=== PATIENT | male | born 1975 | race African-American/Black ===

== ENCOUNTER 2016-10-20 13:58 | Emergency (ER) | payer OTHER ==
[2016-10-20] MEDS ORDERED: IBUPROFEN 600 MG TABLET PO ONE (15:09)
[2016-10-20] MEDS ORDERED: HYDROCHLOROTHIAZIDE 25 MG TABLET PO ONE (15:09)
--- NOTE | 2016-10-20 15:11 | EKG REPORT ---
SEVERITY:- NORMAL ECG - SINUS RHYTHM : Confirmed by: Nacho Smith MD 20-Oct-2016 15:10:51
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
[2016-10-20 15:54] LABS: ANION GAP 15 (5-19); BLOOD UREA NITROGEN 17 mg/dL (7-20); CALCIUM 9.9 mg/dL (8.4-10.2); CARBON DIOXIDE 29 mmol/L (22-30); CHLORIDE 100 mmol/L (98-107); CREATININE RESULT 1.48 mg/dL (0.52-1.25); GLUCOSE 85 mg/dL (75-110); SODIUM 143.5 mmol/L (137-145)
[2016-10-20] MEDS ORDERED: BUTALB/ACETAMINOPHEN/CAFFEINE 1 TAB EACH PO ONE (16:44)
[2016-10-20 17:06] VITALS: BP 171/80
== END 2016-10-20 16:58 | disposition home or self-care (01) ==
LOC: ER 13:58
DX: I10 Essential (primary) hypertension (principal); R07.89 Other chest pain; R51 Headache; F17.200 Nicotine dependence, unspecified, uncomplicated
CPT/HCPCS: 93005; 99285; 36415; 80048; 84484; 93010; J3490

== ENCOUNTER 2017-06-12 05:22 | Emergency (ER) | payer OTHER ==
[2017-06-12] MEDS ORDERED: METOCLOPRAMIDE HCL ORAL SOLN 10 MG/10 ML UDCUP PO ONE (05:39)
[2017-06-12] MEDS ORDERED: LIDOCAINE 2% VISCOUS SOLN 20 ML UDCUP PO ONE (05:39)
[2017-06-12] MEDS ORDERED: MAG HYDROX/AL HYDROX/SIMETH SUSP 30 ML UDCUP PO ONE (05:39)
--- NOTE | 2017-06-12 05:41 | ER Document Report ---
Doctor's Note Notes: 06/12/17 05:39 I performed a quick triage evaluation of the patient. Patient is a 41-year-old male who presents with complaint of chest pain. Says been ongoing for a day and 1/2-2 days. Says it feels like acid reflux but it has been more in his chest which is atypical from his typical acid reflux. He says he has noticed tonight that he will belch which will leave some pressure in his chest but then he gets a "studsy" type feeling into his throat that sometimes schmitt. He does have history of hypertension and is a smoker. His EKG shows sinus rhythm with concave up ST segment elevation without reciprocal ST segment depression consistent with what appears to be early repolarization abnormality. Patient clinically looks well. Ordered GI cocktail to see if this helps his symptoms. I have ordered cardiac enzymes due to his history of high blood pressure, atypical chest pain, and smoking.
[2017-06-12 06:14] LABS: ABSOLUTE EOSINOPHILS # (AUTO) 0.1 10^3/uL (0.0-0.6); ABSOLUTE LYMPHOCYTES (AUTO) 1.7 10^3/uL (0.5-4.7); ABSOLUTE MONOCYTES (AUTO) 0.4 10^3/uL (0.1-1.4); ABSOLUTE NEUT (AUTO) 2.1 10^3/uL (1.7-8.2); BASOPHILS % (AUTO) 1.1 % (0-2); EOSINOPHILS % (AUTO) 3.5 % (0-6); HEMATOCRIT 40.4 % (37.9-51.0); HEMOGLOBIN 13.7 g/dL (13.5-17.0); LYMPHOCYTES % (AUTO) 38.9 % (13-45); MEAN CORPUSCULAR HEMOGLOBIN 28.3 pg (27.0-33.4); MEAN CORPUSCULAR HGB CONC 33.8 g/dL (32.0-36.0); MEAN CORPUSCULAR VOLUME 84 fl (80-97); MONOCYTES % (AUTO) 8.6 % (3-13); PLATELET COUNT 185 10^3/uL (150-450); RED BLOOD COUNT 4.82 10^6/uL (4.35-5.55); RED CELL DISTRIBUTION WIDTH 14.7 % (11.5-14.0); SEGMENTED NEUTROPHILS % (AUTO) 47.9 % (42-78); TOTAL CELLS COUNTED % (AUTO) 100 %; WHITE BLOOD COUNT 4.3 10^3/uL (4.0-10.5)
[2017-06-12 06:25] LABS: ALANINE AMINOTRANSFERASE 27 U/L (21-72); ALBUMIN 4.1 g/dL (3.5-5.0); ALKALINE PHOSPHATASE 51 U/L (38-126); ANION GAP 10 (5-19); ASPARTATE AMINO TRANSFERASE 23 U/L (17-59); BILIRUBIN,DIRECT 0.3 mg/dL (0.0-0.4); BILIRUBIN,TOTAL 0.3 mg/dL (0.2-1.3); BLOOD UREA NITROGEN 13 mg/dL (7-20); CALCIUM 9.5 mg/dL (8.4-10.2); CARBON DIOXIDE 28 mmol/L (22-30); CHLORIDE 105 mmol/L (98-107); CREATINE KINASE 200 U/L (55-170); GLUCOSE 103 mg/dL (75-110); TOTAL PROTEIN 6.6 g/dL (6.3-8.2)
--- NOTE | 2017-06-12 06:34 | RADIOLOGY REPORT (SQ) ---
EXAM DESCRIPTION: CHEST SINGLE VIEW CLINICAL HISTORY: chest pain COMPARISON: None. FINDINGS: Single frontal view of the chest. The cardiomediastinal silhouette has normal size and contour. No consolidation, pneumothorax, or pleural effusion. No displaced rib fractures identified. Upper abdominal soft tissues are unremarkable. Leads overlie the chest IMPRESSION: 1. No acute pulmonary process identified.
[2017-06-12 06:37] LABS: CREATINE KINASE MB 0.26 ng/mL (<4.55)
[2017-06-12 06:38] LABS: TROPONIN I < 0.012 ng/mL
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
--- NOTE | 2017-06-12 08:27 | RADIOLOGY REPORT (SQ) ---
EXAM DESCRIPTION: U/S ABDOMEN LIMITED W/O DOP COMPLETED DATE/TIME: 06/12/2017 8:05 am REASON FOR STUDY: RUQ pain w/ GERD COMPARISON: None. TECHNIQUE: Dynamic and static grayscale images acquired of the abdomen and recorded on PACS. Additio nal selected color Doppler and spectral images recorded. LIMITATIONS: None. FINDINGS: PANCREAS: No masses. Visualized pancreatic duct normal caliber. LIVER: No masses. Echotexture normal. LIVER VASCULATURE: Normal directional flow of the main portal vein and hepatic veins. GALLBLADDER: No stones. Normal wall thickness. No pericholecystic fluid. ULTRASOUND-DETECTED BARRERA'S SIGN: Negative. INTRAHEPATIC DUCTS AND COMMON DUCT: CBD and intrahepatic ducts normal caliber. No filling defects. INFERIOR VENA CAVA: Normal flow. AORTA: No aneurysm. RIGHT KIDNEY: Normal size. Normal echogenicity. No solid or suspicious masses. No hydronephrosis. No calcifications. PERITONEAL AND RIGHT PLEURAL SPACE: No ascites or effusions. OTHER: No other significant findings. IMPRESSION: NORMAL RIGHT UPPER QUADRANT ULTRASOUND. TECHNICAL DOCUMENTATION: JOB ID: [id number]- All Rights Reserved
[2017-06-12 09:01] VITALS: BP 134/94
--- NOTE | 2017-06-13 07:57 | EKG REPORT ---
SEVERITY:- NORMAL ECG - SINUS RHYTHM : Confirmed by: Brittany Reyes MD 13-Jun-2017 07:56:27
== END 2017-06-12 09:05 | disposition home or self-care (01) ==
LOC: ER 05:22
DX: K21.9 Gastro-esophageal reflux disease without esophagitis (principal); I10 Essential (primary) hypertension; R07.9 Chest pain, unspecified
CPT/HCPCS: 93005; 99285; 36415; 82553; 82550; 85025; 80053; 84484; 71010; 76705; 93010; J3490